=== PATIENT | female | born 2000 | race Hispanic/Latino ===

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

== ENCOUNTER 2018-04-11 10:32 | Emergency (ER) | payer SELFPAY | END 2018-04-11 11:48 | disposition home or self-care (01) | LOC: ERS 10:32 | DX: F41.9 Anxiety disorder, unspecified (principal); I10 Essential (primary) hypertension; F43.9 Reaction to severe stress, unspecified | CPT/HCPCS: 99283 ==

== ENCOUNTER 2021-12-13 00:09 | Emergency (ER) | payer SELFPAY ==
[2021-12-13 00:52] LABS: Bilirubin Negative (Negative); Blood, Urine Negative (Negative); Clarity Clear (Clear); Glucose, Urine (Dipstick) Normal (Negative); Ketone, Urine Negative (Negative); Leukocyte Negative Leu/uL (Negative); Nitrite Negative (Negative); Protein, Urine (Dipstick) Negative (Neg-Trace); Specific Gravity, Urine 1.002 (1.002-1.036); Urobilinogen Normal mg/dL (Less than 2); pH, Urine 6.5 (5.0-9.0)
[2021-12-13 00:56] LABS: #Basophils 0.1 thou/uL (0.0-0.2); #Eosinphils 0.1 thou/uL (0.0-0.7); #Lymphocytes 3.1 thou/uL (1.20-3.40); #Monocytes 0.6 thou/uL (0.11-0.59); #Neutrophils 3.8 thou/uL (1.40-6.50); %Basophils 1.4 % (0.0-1.0); %Eosinophils 0.8 % (0.0-10.0); %Lymphocytes 40.7 % (21.0-51.0); %Monocytes 7.8 % (0.0-10.0); %Neutrophils 49.4 % (42.0-75.0); Hemoglobin 13.7 g/dL (12.0-16.0); Mean Corpuscular HGB CONC 32.5 g/dL (32.0-36.0); Mean Corpuscular Hemoglobin 31.8 pg (27.0-31.0); Mean Platelet Volume 8.2 fL (7.4-10.4); Platelet Count 310 thou/uL (130-400); RBC Distribution Width 11.6 % (11.5-14.5); Red Blood Cell (RBC) Count 4.31 mill/uL (4.20-5.40); White Blood Cell (WBC) Count 7.7 thou/uL (4.8-10.8)
[2021-12-13 01:11] LABS: ALT (SGPT) 8 U/L (8-55); AST (SGOT) 16 U/L (5-34); Albumin 4.4 g/dL (3.5-5.0); Alkaline Phosphatase 64 U/L (40-110); Anion Gap 15 mmol/L (10-20); BUN (Urea Nitrogen) 6 mg/dL (7.0-18.7); Bilirubin, Total 0.5 mg/dL (0.2-1.2); Calc. Creatinine Clearance 0 mL/min (70-130); Calcium 9.4 mg/dL (7.8-10.44); Carbon Dioxide 24 mmol/L (22-29); Chloride 100 mmol/L (98-107); Estimated GFR 126; Globulin 3.2 g/dL (2.4-3.5); Glucose 86 mg/dL (70-105); Potassium 3.6 mmol/L (3.5-5.1); Protein, Total 7.6 g/dL (6.0-8.3); Sodium 135 mmol/L (136-145)
[2021-12-13 01:12] LABS: Acetaminophen Less than 10.0 mcg/mL (10.0-30.0); Alcohol 267 mg/dL (Less than 10); Salicylate Less than 8.0 mg/dL (15.0-30.0)
[2021-12-13] MEDS ORDERED: Nicotine 14 MG PATCH ONE (01:31)
[2021-12-13] MEDS ORDERED: risperiDONE 1 MG TAB ONE (01:38)
[2021-12-13 01:44] LABS: Amphetamine Not Detected (NotDetected); Barbiturates Screen Not Detected (NotDetected); Benzodiazepine Screen Not Detected (NotDetected); Cocaine Metabolite Screen Not Detected (NotDetected); Methadone Not Detected (NotDetected); Methamphetamine Not Detected (NotDetected); Opiate Screen Not Detected (NotDetected); Oxycodone Screen Not Detected (NotDetected); Phencyclidine (PCP) Not Detected (NotDetected); THC/Cannabinoid Screen Not Detected (NotDetected); Tricyclic Screen Not Detected (NotDetected)
== END 2021-12-13 20:00 ==
LOC: ERS 00:09
DX: R45.851 Suicidal ideations (principal); F17.210 Nicotine dependence, cigarettes, uncomplicated
CPT/HCPCS: 36415; 80053; 80306; 80307; 81003; 84443; 85025; 93005

== ENCOUNTER 2022-01-10 22:47 | Emergency (ER) | payer OTHER | END 2022-01-11 00:41 | disposition home or self-care (01) | LOC: ERS 22:47 | DX: F41.9 Anxiety disorder, unspecified (principal); F41.0 Panic disorder [episodic paroxysmal anxiety]; I10 Essential (primary) hypertension; J45.909 Unspecified asthma, uncomplicated; Z79.899 Other long term (current) drug therapy; F17.210 Nicotine dependence, cigarettes, uncomplicated; F17.290 Nicotine dependence, other tobacco product, uncomplicated; R07.9 Chest pain, unspecified; E87.6 Hypokalemia | CPT/HCPCS: 36415; 71045; 80053; 81003; 84443; 84484; 85025; 93005 ==

== ENCOUNTER 2022-10-09 04:12 | Inpatient (IN) | payer MEDICAID, OTHER ==
[2022-10-09 04:32] LABS: Hematocrit 38.6 % (36.0-47.0); Hemoglobin 12.8 g/dL (12.0-16.0); Mean Corpuscular HGB CONC 33.2 g/dL (32.0-36.0); Mean Corpuscular Hemoglobin 32.6 pg (27.0-31.0); Mean Corpuscular Volume 98.2 fl (78.0-98.0); Mean Platelet Volume 10.9 fL (7.4-10.4); Platelet Count 255 10x3/uL (130-400); RBC Distribution Width 14.1 % (11.5-14.5); Red Blood Cell (RBC) Count 3.93 mill/uL (4.20-5.40); White Blood Cell (WBC) Count 4.5 10x3/uL (4.8-10.8)
[2022-10-09 04:33] LABS: Manual Diff?? YES
[2022-10-09 04:34] LABS: Delete Auto Diff?? YES
[2022-10-09 04:44] LABS: BHCG - Serum Negative (NEGATIVE); Pregs Control Background? CLEAR/WHITE (CLR/WHITE); Pregs Control Bar Appear? YES (CONTROL BAR)
[2022-10-09 04:55] LABS: Acetaminophen Less than 10 mcg/mL (10.0-30.0); Alcohol 309.7 mg/dL (Less than 10); Salicylate Less than 8.0 mg/dL (15.0-30.0)
[2022-10-09 04:58] LABS: ALT (SGPT) 100 U/L (8-55); AST (SGOT) 102 U/L (5-34); Albumin 4.5 g/dL (3.5-5.0); Alkaline Phosphatase 63 U/L (40-110); Anion Gap 17 mmol/L (10-20); BUN (Urea Nitrogen) 4 mg/dL (7.0-18.7); Bilirubin, Total 0.3 mg/dL (0.2-1.2); CK (CPK) 1005 U/L (29-168); Calc. Creatinine Clearance 0 mL/min (70-130); Calcium 8.7 mg/dL (7.8-10.44); Carbon Dioxide 19 mmol/L (22-29); Chloride 109 mmol/L (98-107); Estimated GFR 114; Globulin 3.1 g/dL (2.4-3.5); Glucose 81 mg/dL (70-105); Potassium 3.7 mmol/L (3.5-5.1); Protein, Total 7.6 g/dL (6.0-8.3); Sodium 141 mmol/L (136-145)
[2022-10-09 05:08] LABS: Amphetamine Not Detected (NotDetected); Barbiturates Screen Not Detected (NotDetected); Benzodiazepine Screen Not Detected (NotDetected); Cocaine Metabolite Screen Detected (NotDetected); Methadone Not Detected (NotDetected); Methamphetamine Not Detected (NotDetected); Opiate Screen Not Detected (NotDetected); Oxycodone Screen Not Detected (NotDetected); Phencyclidine (PCP) Not Detected (NotDetected); THC/Cannabinoid Screen Not Detected (NotDetected); Tricyclic Screen Not Detected (NotDetected)
[2022-10-09 05:12] LABS: Bilirubin Negative (Negative); Blood, Urine Negative (Negative); CAUTI Indications for Culture Alt mental st,lethar; Clarity Clear (Clear); Glucose, Urine (Dipstick) Normal (Negative); Ketone, Urine Negative (Negative); Leukocyte Negative Leu/uL (Negative); Nitrite Negative (Negative); Protein, Urine (Dipstick) Negative (Neg-Trace); RBC/HPF None Seen HPF (0-3); Specific Gravity, Urine 1.007 (1.002-1.036); Squamous Epithelial 0-3 HPF (0-3); Urobilinogen Normal mg/dL (Less than 2); WBC/HPF 0-3 HPF (0-3); pH, Urine 5.5 (5.0-9.0)
[2022-10-09 05:16] LABS: Eosinophils 1 % (0-10); Large Platelets 6.9 % (0-5); Lymphocytes 48 % (21-51); Monocytes 11 % (0-10); Neutrophil 41 % (42-75); Platelet Adequacy Comment Platelets Normal; Polychromasia SLIGHT = 2-3 cells HPF (0-2); Total Cell Count 101
[2022-10-09 05:22] LABS: Bacteria/HPF 1+ HPF (None Seen); Urine Culture Reflex No No
[2022-10-09 05:41] LABS: Actual Bicarbonate (HCO3a) 16.8 mEq/L (22-28); Analyzer IN Cardio ER; Base Excess (BEa) -8.4 mEq/L (-2.0 to +3.0); CO2 Tension 33.7 mmHg (35.0-45.0); Calcium, Ionized (arterial) 1.05 mmol/L (1.12-1.30); Carboxyhemoglobin (COHb) 0.2 gm% (0.0-3.0); Hematocrit-ABG 33 % (36.0-47.0); Hemoglobin (Hb) 11.1 g/dL (12.0-16.0); O2 Tension (PaO2), arterial 272.4 mmHg (80.0-100.0); Potassium - ABG Lab 3.56 mmol/L (3.70-5.30); pH, Arterial 7.316 (7.35-7.45)
[2022-10-09 05:43] LABS: ALV-art Gradient 41.975 mmHg (0-20); Puncture Site LRA
[2022-10-09] MEDS ORDERED: Fentanyl CADD 100 ML IV SCH ×2 (05:45→06:30)
[2022-10-09] MEDS ORDERED: Ondansetron PF 4 MG/2 ML Vial IVP PRN (06:01)
[2022-10-09] MEDS ORDERED: Ondansetron ODT 4 MG TAB PO PRN (06:01)
[2022-10-09] MEDS ORDERED: Acetaminophen 650 MG Suppository PR PRN (06:01)
[2022-10-09] MEDS ORDERED: Acetaminophen 325 MG TAB PO PRN (06:01)
[2022-10-09] MEDS ORDERED: Ventilator Sedation Protocol 1 EACH FS SCH (06:15)
[2022-10-09] MEDS ORDERED: Fentanyl BOLUS 250 ML IVPB PRN (06:30)
[2022-10-09] MEDS ORDERED: Propofol BOLUS 1,000 MG/100 ML VIAL IV PRN (06:30)
[2022-10-09] MEDS ORDERED: Morphine 2 MG/ML VIAL SLOW IVP PRN (06:30)
[2022-10-09] MEDS ORDERED: DISCONTINUE PREVIOUS NARCOTIC PAIN MEDICATIONS AND BENZODIAZEPINES FS SCH (06:30)
[2022-10-09] MEDS: Lorazepam 2 MG/ML VIAL SLOW IVP PRN ×5 (07:00→21:52)
[2022-10-09] MEDS: Propofol 1,000 MG/100 ML VIAL IV PRN ×3 (07:10→20:14)
[2022-10-09] MEDS ORDERED: Lactated Ringer's 1,000 ML IV SCH (07:15)
[2022-10-09] MEDS: Famotidine/PF 20 mg/2ml Vial SLOW IVP SCH ×2 (09:58→21:52)
[2022-10-09] MEDS: Thiamine HCl 200 MG/2 ML VIAL SLOW IVP SCH (13:20)
[2022-10-09] MEDS: D5 LR w/20 mEq KCL 1,000 ML IV SCH ×2 (13:23→21:55)
[2022-10-09] MEDS: Folic Acid 1 MG TAB PO SCH (21:52)
[2022-10-09] MEDS ORDERED: Dexmedetomidine 400 MCG, Admixture Fee 1 EACH in Sodium Chloride 0.9% 96 ML IVPB SCH (22:15)
[2022-10-10] MEDS ORDERED: Lactated Ringer's 500 ML IV SCH (03:15)
[2022-10-10] MEDS ORDERED: D5 LR w/20 mEq KCL 1,000 ML IV SCH ×3 (03:30→09:24)
[2022-10-10 03:51] LABS: #Eosinphils 0.1 thou/uL (0.0-0.7); #Monocytes 0.8 thou/uL (0.11-0.59); %Basophils 0.4 % (0.0-1.0); %Eosinophils 0.7 % (0.0-10.0); %Lymphocytes 13.2 % (21.0-51.0); %Monocytes 11.1 % (0.0-10.0); %Neutrophils 74.5 % (42.0-75.0); Hematocrit 34.5 % (36.0-47.0); Hemoglobin 11.3 g/dL (12.0-16.0); Mean Corpuscular HGB CONC 32.8 g/dL (32.0-36.0); Mean Corpuscular Hemoglobin 32.5 pg (27.0-31.0); Mean Corpuscular Volume 99.1 fl (78.0-98.0); Mean Platelet Volume 10.8 fL (7.4-10.4); Platelet Count 209 10x3/uL (130-400); RBC Distribution Width 14.3 % (11.5-14.5); Red Blood Cell (RBC) Count 3.48 mill/uL (4.20-5.40); White Blood Cell (WBC) Count 6.8 10x3/uL (4.8-10.8)
[2022-10-10 04:19] LABS: ALT (SGPT) 58 U/L (8-55); AST (SGOT) 43 U/L (5-34); Albumin 3.3 g/dL (3.5-5.0); Alkaline Phosphatase 55 U/L (40-110); Anion Gap 12 mmol/L (10-20); BUN (Urea Nitrogen) 4 mg/dL (7.0-18.7); Bilirubin, Total 0.4 mg/dL (0.2-1.2); CK (CPK) 403 U/L (29-168); Calc. Creatinine Clearance 123 mL/min (70-130); Calcium 7.6 mg/dL (7.8-10.44); Carbon Dioxide 22 mmol/L (22-29); Chloride 112 mmol/L (98-107); Estimated GFR 125; Globulin 2.1 g/dL (2.4-3.5); Glucose 139 mg/dL (70-105); Magnesium 1.6 mg/dL (1.6-2.6); Potassium 3.8 mmol/L (3.5-5.1); Protein, Total 5.4 g/dL (6.0-8.3); Sodium 142 mmol/L (136-145)
[2022-10-10] MEDS ORDERED: Albumin 5% 0 ML ONE (05:29)
[2022-10-10] MEDS ORDERED: Albumin 25% 25 GM/100 ML BOT IVPB SCH (05:45)
[2022-10-10 07:25] LABS: Actual Bicarbonate (HCO3a) 22.1 mEq/L (22-28); Base Excess (BEa) -1.1 mEq/L (-2.0 to +3.0); CO2 Tension 32.1 mmHg (35.0-45.0); Calcium, Ionized (arterial) 1.05 mmol/L (1.12-1.30); Carboxyhemoglobin (COHb) 0.8 gm% (0.0-3.0); Hematocrit-ABG 37 % (36.0-47.0); Hemoglobin (Hb) 12.6 g/dL (12.0-16.0); O2 Tension (PaO2), arterial 62.4 mmHg (80.0-100.0); Potassium - ABG Lab 3.73 mmol/L (3.70-5.30); pH, Arterial 7.455 (7.35-7.45)
[2022-10-10 07:26] LABS: ALV-art Gradient 111.375 mmHg (0-20); Puncture Site RRA
[2022-10-10] MEDS ORDERED: Magnesium 2 GM/50 ML(in water) 2 GM in Premix Bag 1 BAG IVPB SCH (08:45)
[2022-10-10] MEDS ORDERED: Electrolyte Replacement Protocol 1 EACH FS SCH (08:45)
[2022-10-10] MEDS ORDERED: Electrolyte Replacement Protocol FS PRN (08:45)
[2022-10-10] MEDS ORDERED: Pantoprazole 40 MG VIAL IVP SCH (09:00)
[2022-10-10] MEDS: Thiamine HCl 200 MG/2 ML VIAL SLOW IVP SCH (15:51)
[2022-10-10] MEDS ORDERED: Ketorolac Tromethamine 30 MG/ML VIAL IVP SCH (20:15)
[2022-10-10] MEDS: Folic Acid 1 MG TAB PO SCH (20:20)
[2022-10-10 20:42] LABS: Troponin I Less than 0.010 ng/mL (< 0.028)
[2022-10-10] MEDS ORDERED: hydrOXYzine 25 MG TAB PO SCH (23:45)
[2022-10-11] MEDS ORDERED: Ketorolac Tromethamine 30 MG/ML VIAL IVP SCH (01:30)
[2022-10-11] MEDS ORDERED: Nicotine 14 MG PATCH TD PRN (03:09)
[2022-10-11] MEDS: Thiamine 100 MG TAB PO SCH (09:20)
[2022-10-11] MEDS ORDERED: Albuterol 200 PUFF (6.7GM INHALER) INH PRN (09:22)
[2022-10-11] MEDS ORDERED: methylPREDNISolone Sod Succ/PF 125 MG/2 ML VIAL IVP SCH (09:30)
[2022-10-11] MEDS ORDERED: Ipratropium/Albuterol 3 ML NEB NEB SCH (09:30)
[2022-10-11] MEDS: Ketorolac Tromethamine 30 MG/ML VIAL IVP PRN (09:53)
[2022-10-11] MEDS ORDERED: Iopamidol-370 76% 500 ML MDV (1 ML CHARGE) ONE (14:30)
[2022-10-11] MEDS ORDERED: Nicotine 21 MG PATCH TD SCH (15:45)
[2022-10-11] MEDS ORDERED: LevoFLOXacin 750 MG TAB PO SCH (16:15)
[2022-10-11] MEDS: traMADol HCl 50 MG TAB PO PRN (20:11)
[2022-10-11] MEDS: Folic Acid 1 MG TAB PO SCH (20:11)
[2022-10-11] MEDS ORDERED: Benzocaine/Menthol 1 LOZ LOZ PO PRN (20:23)
[2022-10-11] MEDS: Nicotine 21 MG PATCH TD SCH (23:42)
[2022-10-11] MEDS: Ipratropium/Albuterol 3 ML NEB NEB PRN (23:54)
[2022-10-12] MEDS: Melatonin 3 MG TAB PO PRN (02:16)
[2022-10-12] MEDS: Ketorolac Tromethamine 30 MG/ML VIAL IVP PRN ×2 (08:36→17:05)
[2022-10-12] MEDS: Thiamine 100 MG TAB PO SCH (08:37)
[2022-10-12] MEDS ORDERED: guaiFENesin ER 600 MG TAB PO SCH (09:45)
[2022-10-12] MEDS: LevoFLOXacin 750 MG TAB PO SCH (17:04)
[2022-10-12] MEDS: guaiFENesin ER 600 MG TAB PO SCH (20:20)
[2022-10-12] MEDS: Folic Acid 1 MG TAB PO SCH (20:20)
[2022-10-12] MEDS: traMADol HCl 50 MG TAB PO PRN (20:22)
[2022-10-12] MEDS: Temazepam 15 MG CAP PO PRN (20:23)
[2022-10-12] MEDS ORDERED: traZODone HCl 50 MG TAB PO SCH (23:45)
[2022-10-13] MEDS: Melatonin 3 MG TAB PO PRN (02:55)
[2022-10-13 06:05] LABS: Anion Gap 14 mmol/L (10-20); BUN (Urea Nitrogen) 6 mg/dL (7.0-18.7); Calc. Creatinine Clearance 116 mL/min (70-130); Calcium 8.8 mg/dL (7.8-10.44); Carbon Dioxide 22 mmol/L (22-29); Chloride 105 mmol/L (98-107); Estimated GFR 124; Glucose 77 mg/dL (70-105); Sodium 137 mmol/L (136-145)
[2022-10-13] MEDS: guaiFENesin ER 600 MG TAB PO SCH ×2 (09:15→20:13)
[2022-10-13] MEDS ORDERED: Furosemide 40 MG TAB PO SCH (09:15)
[2022-10-13] MEDS: Nicotine 21 MG PATCH TD SCH (09:15)
[2022-10-13] MEDS: Thiamine 100 MG TAB PO SCH (09:15)
[2022-10-13] MEDS: Ketorolac Tromethamine 30 MG/ML VIAL IVP PRN (09:19)
[2022-10-13 10:26] VITALS: BMI 22.2
[2022-10-13] MEDS: traMADol HCl 50 MG TAB PO PRN (15:44)
[2022-10-13] MEDS: LevoFLOXacin 750 MG TAB PO SCH (15:44)
[2022-10-13] MEDS: Temazepam 15 MG CAP PO PRN (20:13)
[2022-10-13] MEDS: Folic Acid 1 MG TAB PO SCH (20:13)
[2022-10-14 00:41] VITALS: TEMP 98.2
[2022-10-14] MEDS: Ipratropium/Albuterol 3 ML NEB NEB PRN (01:48)
[2022-10-14 07:41] VITALS: BP 98/65
[2022-10-14] MEDS ORDERED: guaiFENesin/Codeine 200 mg/20 mg 10 ml Cup PO PRN (07:58)
[2022-10-14] MEDS ORDERED: guaiFENesin/Codeine 200 mg/20 mg 10 ml Cup PO SCH (08:15)
[2022-10-14] MEDS: guaiFENesin ER 600 MG TAB PO SCH (08:33)
[2022-10-14] MEDS: Thiamine 100 MG TAB PO SCH (08:33)
[2022-10-14] MEDS: Nicotine 21 MG PATCH TD SCH (08:33)
[2022-10-14] MEDS: traMADol HCl 50 MG TAB PO PRN (08:34)
[2022-10-14] MEDS ORDERED: Fluticasone Propionate Nasal Spray 16 gm Bottle NASAL SCH (09:00)
[2022-10-14] MEDS ORDERED: Loratadine 10 MG TAB PO SCH (09:00)
== END 2022-10-14 11:56 | DRG 917 ==
LOC: ERS 04:12 → CCU 06:00 → T4-A 10-10 16:44
PROVIDERS: ADMIT Student in an Organized Health Care Education/Training Program; ATTEND Family Medicine
PROC: 0BH17EZ Insertion of Endotracheal Airway into Trachea, Via Natural or Artificial Opening (ICD-10-PCS; principal; 2022-10-09)
PROC: 4A133R1 Monitoring of Arterial Saturation, Peripheral, Percutaneous Approach (ICD-10-PCS; 2022-10-09)
PROC: 5A1945Z Respiratory Ventilation, 24-96 Consecutive Hours (ICD-10-PCS; 2022-10-09)
PROC: 30233J1 Transfusion of Nonautologous Serum Albumin into Peripheral Vein, Percutaneous Approach (ICD-10-PCS; 2022-10-10)
DX: T40.5X2A Poisoning by cocaine, intentional self-harm, initial encounter (principal); G92.8 Other toxic encephalopathy; J96.01 Acute respiratory failure with hypoxia; J18.9 Pneumonia, unspecified organism; E87.20 Acidosis, unspecified; M62.82 Rhabdomyolysis; J45.901 Unspecified asthma with (acute) exacerbation; F32.3 Major depressive disorder, single episode, severe with psychotic features; J90 Pleural effusion, not elsewhere classified; E78.00 Pure hypercholesterolemia, unspecified; F10.129 Alcohol abuse with intoxication, unspecified; F41.9 Anxiety disorder, unspecified; R74.01 Elevation of levels of liver transaminase levels; I95.9 Hypotension, unspecified; E83.42 Hypomagnesemia; D63.8 Anemia in other chronic diseases classified elsewhere; E16.2 Hypoglycemia, unspecified; Y90.8 Blood alcohol level of 240 mg/100 ml or more; Z88.8 Allergy status to other drugs, medicaments and biological substances; Z79.51 Long term (current) use of inhaled steroids; Z90.89 Acquired absence of other organs; Z78.1 Physical restraint status
CPT/HCPCS: 31500; 36415; 36416; 36600; 51701; 71045; 71275; 80048; 80053; 80306; 80307; 81001; 82550; 82805; 83735; 84145; 84484; 84703; 85025; 85379; 93005; 93010; 94002; 94003; 94640; 96361; 96365; 96375; C9113; J1650; J1885; J2060; J2704; J2930; J3010; J3411; J3475; J3480; J3490; J7120; J7620; P9047; Q9967; S0028